=== PATIENT | female | born 1950 | race American Indian/Alaskan Native ===

== ENCOUNTER 2017-02-17 18:27 | Emergency (ER) | payer MEDICARE, OTHER ==
[2017-02-17 19:26] VITALS: BP 140/52; RESP 20; TEMP 98.9; O2SAT 95; BMI 50.8
[2017-02-17] MEDS ORDERED: Amoxicillin-Clav 875-125 mg Tab PO STA (19:42)
[2017-02-17] MEDS ORDERED: Ciprofloxacin 0.3% OPTH SOLN OS STA (19:42)
--- NOTE | 2017-02-17 19:46 | ED PDOC ---
Arrival/HPI - General Historian: Patient, Family - General Chief Complaint: Eye Problem Time Seen by Provider: 02/17/17 19:35 - History of Present Illness Narrative History of Present Illness (Text): 02/17/17 19:45 67 y/o female, pmh including htn and dm, nkda, no eye surgery and doesn't wear contacts, c/o lt. eyelid swelling x 2 days with no fall or trauma. Pt. stated that she feel there is a lump on the lt. lower eyelid, no itching, no chest pain or palpitation, no shortness of breath, no pain, no change in vision, no fever or chills, no neck stiffness, no palpitation, no other medical or psychological complaints. (Ruddy Trotter) Past Medical History - Provider Review Nursing Documentation Reviewed: Yes - Infectious Disease Hx of Infectious Diseases: None - Tetanus Immunization Tetanus Immunization: Unknown - Reproductive Menopause: Yes - Cardiac Hx Cardiac Disorders: Yes Hx Hypertension: Yes - Pulmonary Hx Respiratory Disorders: No - Neurological Hx Neurological Disorder: No - HEENT Hx HEENT Disorder: No - Renal Hx Renal Disorder: No - Endocrine/Metabolic Hx Endocrine Disorders: Yes Hx Diabetes Mellitus Type 2: Yes - Hematological/Oncological Hx Blood Disorders: No - Integumentary Hx Dermatological Disorder: No - Musculoskeletal/Rheumatological Hx Arthritis: Yes (Knee) Hx Falls: No - Gastrointestinal Hx Gastrointestinal Disorders: No - Psychiatric Hx Psychophysiologic Disorder: No Hx Substance Use: No - Surgical History Other/Comment: hemorrhoidectomy - Anesthesia Hx Anesthesia: Yes Hx Anesthesia Reactions: No Hx Malignant Hyperthermia: No - Suicidal Assessment Feels Threatened In Home Enviroment: No Family/Social History - Physician Review Nursing Documentation Reviewed: Yes Family/Social History: Unknown Family HX Smoking Status: Former Smoker Hx Alcohol Use: No Hx Substance Use: No Allergies/Home Meds Allergies/Adverse Reactions: Allergies No Known Allergies Allergy (Verified 02/17/17 19:22) Home Medications: Home Meds Medication Instructions Recorded Confirmed Aliskiren/Hydrochlorothiazide 25 mg PO DAILY 04/04/15 02/17/17 [Tekturna Hct 150-12.5 mg Tab] Carvedilol [Coreg] 12.5 mg PO BID 04/04/15 02/17/17 Enalapril Maleate 20 mg PO BID 04/04/15 02/17/17 Insulin Glargine,Hum.rec.anlog 50 unit SC BID 04/04/15 02/17/17 [Lantus] MetFORMIN [glucoPHAGE] 1,000 mg PO BID 04/04/15 02/17/17 Brinzolamide [Azopt 15 ml] 15 ml OU BID 02/17/17 02/17/17 Latanoprost 0.005% Opht [XALATAN 1 drp OU DAILY 02/17/17 02/17/17 2.5 Ml] Review of Systems - Review of Systems Constitutional: absent: Fatigue, Fevers Eyes: Other (lump). absent: Vision Changes, Photophobia, Eye Pain ENT: absent: Hearing Changes Respiratory: absent: SOB Cardiovascular: absent: Chest Pain Gastrointestinal: absent: Abdominal Pain, Diarrhea, Nausea, Vomiting Musculoskeletal: absent: Arthralgias, Back Pain, Myalgias Skin: absent: Rash, Pruritis Psychiatric: absent: Anxiety, Depression Physical Exam Vital Signs Reviewed: Yes Temperature: Afebrile Blood Pressure: Normal Pulse: Tachycardic Respiratory Rate: Normal Appearance: Positive for: Well-Appearing, Non-Toxic, Comfortable Pain Distress: None Mental Status: Positive for: Alert and Oriented X 3 - Systems Exam Head: Present: Atraumatic, Normocephalic Pupils: Present: PERRL Extroacular Muscles: Present: EOMI Conjunctiva: Present: Normal, Other (There is mild erythematous and stye noted on the lt. medial eyelid region with the left lower eye lid swelling, no painful movement of the eye, bilateral pupils round and reactive, no fluorsein strip uptake on the left eye, no painful movement or limitation on the movement of the eye. ) Mouth: Present: Moist Mucous Membranes Neck: Present: Normal Range of Motion Respiratory/Chest: Present: Clear to Auscultation, Good Air Exchange. No: Respiratory Distress, Accessory Muscle Use Cardiovascular: Present: Regular Rate and Rhythm, Normal S1, S2. No: Murmurs Abdomen: Present: Normal Bowel Sounds. No: Tenderness, Distention, Peritoneal Signs Back: Present: Normal Inspection Upper Extremity: Present: Normal Inspection. No: Cyanosis, Edema Lower Extremity: Present: Normal Inspection. No: Edema Neurological: Present: GCS=15, CN II-XII Intact, Speech Normal Skin: Present: Warm, Dry, Normal Color. No: Rashes Psychiatric: Present: Alert, Oriented x 3, Normal Insight, Normal Concentration Vital Signs Temp Pulse Resp BP Pulse Ox 02/17/17 19:16 98.9 F 102 H 20 140/52 L 95 Medical Decision Making ED Course and Treatment: I was available for consultation during PA evaluation. The chart was reviewed by me, and I agree with disposition. The documented history was done by the physician hydraulic lift operator. The documented physical exam was done by the physician hydraulic lift operator. The documented procedures were done by the physician hydraulic lift operator. (Yobani Hayward) 02/17/17 19:44 -augmentin, ciloxin -Discharge home with augmentin, ciloxin, zyrtec, cold compress, follow up with your own pmd and opthalmologist within 2 days, return to the ER for any new or worsening signs or symptoms. (Ruddy Trotter) - Medication Orders Current Medication Orders: Discontinued Medications Amoxicillin/Clavulanate Potassium (Augmentin 875 Mg-125 Mg Tab) 1 tab PO STAT STA PRN Reason: Protocol Stop: 02/17/17 19:43 Ciprofloxacin (Ciloxan 0.3% Ophth Soln) 2 drop OS STAT STA Stop: 02/17/17 19:43 - PA / OVERHAULER HELPER / Resident Statement MD/DO has reviewed & agrees with the documentation as recorded. Disposition/Present on Arrival - Present on Arrival Any Indicators Present on Arrival: No History of DVT/PE: No History of Uncontrolled Diabetes: No Urinary Catheter: No History of Decub. Ulcer: No History Surgical Site Infection Following: None - Disposition Have Diagnosis and Disposition been Completed?: Yes Disposition Time: 19:48 Patient Plan: Discharge - Disposition Diagnosis: Stye, Swelling of eyelid Disposition: HOME/ ROUTINE Patient Problems: Current Active Problems Problem Status Onset Stye Acute Swelling of eyelid Acute Condition: GOOD Additional Instructions: -Discharge home with augmentin, ciloxin, zyrtec, cold compress, follow up with your own pmd and opthalmologist within 2 days, return to the ER for any new or worsening signs or symptoms. Prescriptions: Amoxicillin/Clavulanate [Augmentin 875 MG-125 MG] 1 tab PO BID #16 tab Cetirizine HCl [Zyrtec] 10 mg PO DAILY #10 capsule Ciprofloxacin 0.3% [Ciloxan 0.3% Ophth SOLN] 2 drop OS Q4 #1 bottle Referrals: Bola Bain MD [Primary Care Provider] - Follow up with primary Jaylan Randle MD [Staff Provider] - Follow up with primary Forms: WORK NOTE
[2017-02-17 20:07] VITALS: PULSE 97
== END 2017-02-17 19:51 | disposition home or self-care (01) ==
LOC: ED 18:27
DX: H00.015 Hordeolum externum left lower eyelid (principal); H02.89 Other specified disorders of eyelid